=== PATIENT | male | born 1985 | race Caucasian/White ===

== ENCOUNTER 2017-08-07 13:39 | Emergency (ER) | payer BC ==
[~2017-08-07] VITALS: Ht 170.2 cm; Wt 99.0 kg
[2017-08-07 18:45] VITALS: BP 136/72
== END 2017-08-07 18:46 | disposition home or self-care (01) ==
LOC: ER 14:25
DX: R06.00 Dyspnea, unspecified (principal); R00.2 Palpitations; F41.9 Anxiety disorder, unspecified; R06.4 Hyperventilation; F17.210 Nicotine dependence, cigarettes, uncomplicated; F12.10 Cannabis abuse, uncomplicated; Z91.048 Other nonmedicinal substance allergy status
CPT/HCPCS: 99284

== ENCOUNTER 2019-02-24 08:00 | Emergency (ER) | payer BC ==
[~2019-02-24] VITALS: Ht 180.3 cm; Wt 97.8 kg
[2019-02-24 09:16] LABS: BASOPHILS % 0.5 % (0.0-2.0); EOSINOPHILS % 1.3 % (0.0-5.0); HEMATOCRIT. 46.9 % (42.0-52.0); HEMOGLOBIN. 15.8 g/dL (14.0-18.0); LYMPHOCYTES % 22.1 % (20.0-50.0); MEAN CORPUSCULAR HEMOGLOBIN 28.3 pg (28.0-32.0); MEAN CORPUSCULAR VOLUME 84.1 fL (80.0-94.0); MEAN PLATELET VOLUME 7.4 fl (7.4-10.4); MONOCYTES % 7.4 % (2.0-8.0); NEUTROPHILS % 68.7 % (40.0-76.0); PLATELET 329 x1000/uL (130-400); RED BLOOD CELL COUNT 5.58 mill/uL (4.7-6.1); RED CELL DISTRIBUTION WIDTH 14.2 % (11.6-14.6)
[2019-02-24 09:21] LABS: CHLORIDE 106 mEq/L (98-107)
[2019-02-24] MEDS ORDERED: HYDR-4009 PO (10:13)
[2019-02-24] MEDS ORDERED: FURO40TA5 PO (10:14)
[2019-02-24] MEDS ORDERED: ATEN50TA PO (10:14)
[2019-02-24] MEDS ORDERED: PRED5TAB48 PO (10:14)
[2019-02-24] MEDS ORDERED: ABIR250T MT (10:14)
[2019-02-24 10:20] VITALS: BP 120/76
== END 2019-02-24 10:25 | disposition home or self-care (01) ==
LOC: ER 08:17
DX: R00.2 Palpitations (principal); R07.89 Other chest pain; F12.10 Cannabis abuse, uncomplicated; Z91.030 Bee allergy status; Z79.899 Other long term (current) drug therapy
CPT/HCPCS: 36415; 71045; 84484; 93005; 99284